=== PATIENT | male | born 1950 | race Caucasian/White ===

== ENCOUNTER 2022-06-25 08:17 | Day surgery (SDC) | payer OTHER, SELFPAY ==
[2022-06-25] VITALS (7 sets, daily range): BP systolic 101–150; BP diastolic 57–91; PULSE 50–73; RESP 14–19; TEMP 36.6–36.9; O2SAT 96–99; BMI 21.5
--- NOTE | 2022-06-25 | PATH_ITS ---
[facility] Accession Number: [id number] No. of containers..03 Tissue . 01 Material submitted: . PART A: duodenum - DUODENUM BIOPSY PART B: gastrointestinal site - ANTRUM BIOPSY PART C: esophagus, E-G Junction - GE JUNCTION BIOPSY . 01 Diagnosis: A. Duodenum, Biopsy: Small bowel mucosa with no diagnostic abnormality. Negative for active inflammation, features of sprue, dysplasia, or malignancy. . B. Stomach, Antrum, Biopsy: Antral mucosa with mild chronic gastritis. No evidence of Helicobacter on H/E stain. Negative for intestinal metaplasia. Negative for dysplasia and malignancy. . C. Gastroesophageal Junction, Biopsy: Columnar mucosa with mild foveolar hyperplasia. Negative for intestinal metaplasia. Negative for dysplasia and malignancy. [facility] 06/26/2022 1720 Local . 01 Electronically signed: . Smitha Mondragon MD, Pathologist NPI- [id number] . 01 Gross description: . Part A: DUODENUM BIOPSY: Received in formalin are 2 fragment(s) of champion, soft tissue measuring 0.2 x 0.2 x 0.2 cm to 0.3 x 0.2 x 0.2 cm submitted entirely in 1 cassette(s) Part B: ANTRUM BIOPSY: Received in formalin is 1 fragment(s) of champion, soft tissue measuring 0.3 x 0.2 x 0.2 cm submitted entirely in 1 cassette(s) Part C: GE JUNCTION BIOPSY: Received in formalin is 1 fragment(s) of champion, soft tissue measuring 0.1 x 0.1 x 0.1 cm submitted entirely in 1 cassette(s) /[facility] 06/25/2022 2233 Local . 01 Pathologist provided ICD-10: K21.9 . 01 CPT . 010886, [id number], [id number] Performed at: 01 [facility] [address] [facility] [address] [facility], [place], [place] [id number] MD Anil Catherine MD Phone: [phone]
--- NOTE | 2022-06-25 09:17 | PM.HP.1 ---
History of Present Illness History of Present Illness Date Patient Seen: 06/25/22 Time Patient Seen: 09:17 Chief complaint: Colonoscopy and EGD Narrative: Here for EGD and colonoscopy. I reviewed my recent office note. No significant changes. Patient History Family & Social History Social History: household members spouse Tobacco & Substance use: Smoking Status Never smoker alcohol intake current alcohol intake frequency a few times a week Substance Use Type does not use Meds Home Medications and Allergies Home Medications Medication Instructions Recorded Confirmed Type allopurinol 100 mg PO DAILY 06/25/22 06/25/22 History amlodipine 10 mg tablet 10 mg PO DAILY 06/25/22 06/25/22 History labetalol 50 mg PO BID 06/25/22 06/25/22 History lisinopril 40 mg tablet 40 mg PO DAILY 06/25/22 06/25/22 History Allergies Allergy/AdvReac Type Severity Reaction Status Date / Time Penicillins Allergy Verified 06/25/22 08:45 Review of Systems Review of Systems ROS: Yes All systems reviewed with the patient and are negative except as otherwise documented Exam Vital Signs (past 8 hours): - 06/25/22 08:56 Temperature 97.8 F Pulse Rate 73 Respiratory Rate 16 Blood Pressure 150/91 H Pulse Oximetry 97 Oxygen Delivery Method Room Air Oxygen Delivery Method Room Air Const General: cooperative HENMT Head: normal to inspection Eyes General: appearance normal, both eyes and all related structures Neck Neck: normal visual inspection Chest Chest: normal inspection of the chest Resp Effort & Inspection: normal respiratory effort Cardio Rate: regular rate GI Inspection: normal to inspection Skin General: no rashes or lesions noted Neuro General: patient alert and patient awake Extrem General: normal to inspection and no pedal edema Psych Appearance: grossly normal Assessment & Plan Assessment & Plan narrative: 71-year-old male with a long history of GERD. He has some sporadic symptoms of fullness and emesis of uncertain etiology. EGD is pursued today. He additionally has a history of colon polyps and surveillance colonoscopy will additionally be accomplished today. Time Spent With Patient Critical Care time: I spent a total of [] minutes of critical care time on this patient's care today; this time is exclusive of procedural time.
[2022-06-25 09:48] LABS: COVID19 -Nasal RAPID Negative (Negative)
--- NOTE | 2022-06-25 09:55 | PM.PREOP ---
Pre-operative Note COVID-19 COVID-19 status: Negative Result date/Date tested (Pos, Neg/Pending): 06/25/22 Criteria for continued procedure: Possibility delay results in more complex future surgery or treatment Interval Note History & Physical reviewed/Exam performed by Physician: Yes Changes to H&P: No ASA Class (for procedural sedation): II
--- NOTE | 2022-06-25 10:27 | P.OP.EGD&C_ITS ---
Operative Date/Time/Diagnoses Date of procedure: 06/25/22 Time of procedure: 10:27 Pre-op diagnosis: GERD, sporadic vomiting, colon polyps Post-op diagnosis: same Procedure & Clinicians Study performed: EGD with biopsies and colonoscopy Same procedure as scheduled: Yes Indications: GERD, sporadic vomiting, colon polyps Surgeon: Lester Banks Procedure Notes SCOAP/Timeout: Done Procedure in detail: After the risks and benefits were explained, written and verbal informed consent was obtained. The patient was brought into the procedure room and placed into the left lateral decubitus position. Please see nurse spinning machine tender notes for sedation details. The scope was introduced into the mouth through the bite block and advanced under direct visualization to the 2nd portion of the duodenum. The scope was slowly withdrawn carefully examining the mucosa for any defects or lesions. Retroflexed views were accomplished in the stomach. The stomach was decompressed, the scope was then removed from the patient who t olerated the procedure well. The patient was then turned around, a digital rectal examination accomplished. The scope was introduced into the rectum and advanced to the cecum as identified by the appendiceal orifice and ileocecal valve. The scope was slowly withdrawn to carefully examine the mucosa for any defects or lesions. Multiple direct views were made through the dentate line. The colon was decompressed. The scope was removed from the patient who tolerated the procedure well. Pediatric colonoscope Bowel prep adequate Scope withdrawal time: 7 minutes Sedation minutes: 24 Complications: none Impression: 1. Duodenum: There were a couple of subtle mild erosive features in the 2nd portion and biopsies were acquired. In the duodenal bulb there was extra intestinal mass effect consistent with the patient's reported history of polycystic disease. This however was not obstructing passage of the scope from bulb through into the 2nd portion. The patient had a fairly sharply angulated corner between bulb and D2 which was a little challenging to navigate. 2. Stomach: Patient had an erosive gastropathy. Most of the erosions were found in the region of the antrum and biopsies were acquired from this location. Retroflexed views of the LES disclosed a small subtle sliding hiatal hernia. No additional mucosal gastric pathology appreciated. 3. Esophagus: The squamocolumnar junction correlated with the top of the gastric folds. GEJ was at 41 cm from the incisors. There was evidence of mucosal irregularity and some inflammation at the GE junction. Biopsy was acquired from the mucosal irregularity in the 9-10 o'clock location for histology. The remainder of the esophagus was unremarkable. 4. Colon: No significant polyps mass lesions or inflammatory features identified throughout. There were some scattered small diverticula in the sigmoid. Grade 2 hemorrhoids were noted on direct views. Endoscopic diagnosis 1. Erosive gastropathy 2. GE junction inflammation 3. Subtle small sliding hiatal hernia 4. Subtle duodenal erosions 5. Extra intestinal mass effect duodenal bulb (most likely a function of the polycystic disease). Post-procedure Plan for aftercare: 1. Await histopathology 2. Initiation of omeprazole once daily 3. Completely chew all food 4. Follow up GI clinic in 6 weeks Disposition: PACU
== END 2022-06-25 11:14 | disposition home or self-care (01) ==
PROVIDERS: PCP Internal Medicine; Referring Provider Internal Medicine Gastroenterology; Visit Provider Internal Medicine Gastroenterology
PROC: 0DJ08ZZ Inspection of Upper Intestinal Tract, Via Natural or Artificial Opening Endoscopic (ICD-10-PCS; CPT 43235; principal; 2022-06-25 09:30)
PROC: 0DJD8ZZ Inspection of Lower Intestinal Tract, Via Natural or Artificial Opening Endoscopic (ICD-10-PCS; CPT 45378; 2022-06-25 09:30)
DX: Z12.11 Encounter for screening for malignant neoplasm of colon (principal); Z86.010 Personal history of colon polyps; K21.9 Gastro-esophageal reflux disease without esophagitis; R11.10 Vomiting, unspecified; K44.9 Diaphragmatic hernia without obstruction or gangrene; K31.9 Disease of stomach and duodenum, unspecified; K29.50 Unspecified chronic gastritis without bleeding; K57.30 Diverticulosis of large intestine without perforation or abscess without bleeding; K64.1 Second degree hemorrhoids; Z20.822 Contact with and (suspected) exposure to COVID-19
CPT/HCPCS: 43239; G0105; 87635; C9803; J2704